=== PATIENT | female | born 1995 | race Caucasian/White ===

== ENCOUNTER 2020-06-26 14:51 | Emergency (ER) | payer MEDICAID, SELFPAY ==
[2020-06-26 14:59] VITALS: BP 110/86; PULSE 93; RESP 20; TEMP 36.4; O2SAT 97
--- NOTE | 2020-06-26 15:06 | W.ED.GENAD ---
Discharge Plan Disposition Patient Disposition: HOME Condition: Stable Discharge Details Clinical Impression: Depression, Deliberate self-cutting Primary Care Provider: Mirna Adair ED Provider: Lovely Little Home Meds and New Rx's Prescriptions: Continued fluticasone propion-salmeterol 250-50 mcg/dose blister with device 2 inh INHALATION BID RF: 0 albuterol sulfate 90 mcg/actuation HFA aerosol inhaler 2 puff INHALATION PRN PRNRF: 0 Discharge Instructions Instructions: Depression (ED) Additional Instructions: Follow-up with your scheduled appointment with your therapist Sugey tomorrow. Call [facility] twice daily to check in as part of your therapy. You can also call them anytime with questions or concerns. Follow-up with your scheduled appointment with [facility] next week to discuss possibly starting medication management for your depression. Return immediately to the emergency department if you develop any worsening or new concerning symptoms. Discharge Data Discharge Date/Time-TO BE ENTERED AT DEPARTURE: 06/26/20 17:03 Discharge Physician: Lovely Little Medical Decision Making 1515 -- 24-year-old female with a history of anxiety and depression presents for symptoms of depression and self-harm with cutting over the past week. Has had suicidal thoughts at times but not currently and does not have a plan. No HI. Vitals within normal limits. She appears nontoxic. She has superficial lacerations to her right volar forearm and right lateral thigh. As she appears nontoxic with clear and concise speech, do not see an indication for lab work at this time. A urine test was obtained and negative. We will have behavioral health evaluate at bedside and suspect that patient will need resources for outpatient follow-up. 1700 -- Pt discussed with Nesha from [facility] who evaluated patient through zoom at bedside. Patient is not currently suicidal at this time and agrees that patient is appropriate for discharge to home. Patient was advised that she can follow-up with [facility] by phone twice daily to check-in and at any time in between that if needed. She has an appointment with her therapist Sugey tomorrow in the office. There is also plan for patient to follow-up with a nurse practitioner at [facility] next week to discuss possible medication management of her depression. We will hold on any treatment with antidepressants from the ED due to patient's various side effect profile and that she does not appear to be in acute need. Advised to follow up with the primary care doctor for re-evaluation. Usual and customary return precautions given prior to discharge. HPI General Mode of arrival: ambulatory. Date/Time Provider Initiated Documentation: 06/26/20 14:53. Limitations to Documentation: no limitations. Information obtained by: patient. HPI Narrative: Patient is a 24-year-old female with a history of anxiety and depression who presents here for deliberate self cutting and feelings of depression for the past few months, worse over the past week. Patient states that she moved here from [facility] 2 months ago to attend [employer]. She states that in the past year she has been on Lexapro and Zoloft with side effects of nightmares and with Effexor for bilateral eye swelling, so she states she stopped all of them. She states she has seen a therapist Sugey in [place] for her depression recently. She states she also discussed with [facility] but they hesitated to put her on antidepressants due to her side effects. She states she cut her right thigh and her right forearm in the past week and her roommate became nervous and called the local police. Patient drove herself to the ER. Patient states she has had thoughts at times of cutting her wrists more deeply to hurt herself but has not thought specifically of suicide and has not thought of cutting her wrist to kill herself. She denies any previous history of suicide attempts. She states she first started cutting herself in the spring 2019. She denies homicidal ideation, drug use, hallucinations. She states she has been drinking 1 drink of alcohol daily for the past week due to her feelings of depression but no more than that. Related Data Home Medications Medication Instructions Recorded Confirmed albuterol sulfate 2 puff INHALATION PRN PRN 06/26/20 06/26/20 fluticasone propion-salmeterol 2 inh INHALATION BID 06/26/20 06/26/20 Allergies Allergy/AdvReac Type Severity Reaction Status Date / Time venlafaxine [From Effexor] Allergy Swelling/Ed Unverified 06/26/20 15:40 maurilio General Stated Complaint: PsychEval SHLIOH: 2 Review of Systems All systems reviewed & are unremarkable except as noted in HPI and below Constitutional Constitutional: Reports as per HPI, Denies chills and Denies fever(s) Eyes Eyes: Denies blurry vision ENT Ears, Nose, Mouth, and Throat: Denies dizziness, Denies sore throat and Denies throat swelling Cardiovascular Cardiovascular: Denies chest pain and Denies dyspnea Respiratory Respiratory: Denies cough and Denies dyspnea Gastrointestinal Gastrointestinal: Denies abdominal pain, Denies diarrhea and Denies vomiting Genitourinary Genitourinary: Denies hematuria and Denies dysuria Musculoskeletal Musculoskeletal: Denies back pain and Denies numbness Integumentary/Breasts Skin/Breast: Denies lesions and Denies rash Neurologic Neurologic: Denies dizziness, Denies localized weakness and Denies numbness Psychiatric Psychiatric: Reports depression Allergic/Immunologic Allergic/Immunologic: Denies throat swelling PFSH Medical History (Updated 06/26/20 @ 16:51 by Lovely Little DO) Anxiety Depression Surgical History (Updated 06/26/20 @ 16:47 by Lovely Little DO) No significant past surgical history Social History Smoking/Tobacco Use Status: Never Alcohol Intake: current Alcohol Intake frequency: a few times a month Drug use: Never Substance use type: does not use Exam Const General: cooperative, healthy appearing and no acute distress HENMT Head: normal to inspection Face and sinus: normal facial exam Eyes General: appearance normal, both eyes and all related structures Pupils: PERRL EOM: EOM intact bilaterally Neck Neck: normal visual inspection and No submandibular swelling Lymphatic: no lymphadenopathy noted Chest Chest: normal inspection of the chest and no tenderness Resp Effort & Inspection: normal respiratory effort and able to speak in complete sentences Auscultation: clear to auscultation bilaterally Cardio Rate: regular rate Rhythm: regular rhythm GI Inspection: normal to inspection Palpation: soft, not firm, not rigid and nontender Auscultation: normal bowel sounds Back/Spine/Pelvis Thoracic/Lumbar Spine: thoracic and lumbar spine normal to inspection Pelvis: no pain with anterior-posterior compression Skin General skin exam: no rashes or lesions noted Neuro General: patient alert, patient awake and patient oriented x3 Cognition: normal cognition Speech: speech normal Motor: muscle tone normal throughout Sensory Exam: no sensory deficits noted Extrem General: full ROM, capillary refill normal, no calf tenderness bilaterally and no edema Elbow/forearm/wrist images: 1. Separate multiple linear superficial lacerations with overlying developing crusts w/o erythema, edema, bleeding, induration, or ecchymoses. Upper/lower leg/hip images: 1. Multiple separate linear superficial lacerations noted on R lateral aspect of proximal thigh with overlying crusts w/o evidence of edema, erythema, ecchymoses, drainage, bleeding, induration or fluctuance. Psych Appearance: grossly normal Mental Status: mental status grossly normal Speech and Movement: speech and movement normal Affect: normal affect Thought Content: suicidality Course Vital Signs Vital signs: Vital Signs Temperature 97.5 F L 06/26/20 14:59 Pulse 93 H 06/26/20 14:59 Respiratory Rate 20 06/26/20 14:59 Blood Pressure 110/86 06/26/20 14:59 Pulse Oximetry 97 06/26/20 14:59 Temperature 97.5 F L 06/26/20 14:59 Temperature Source Skin 06/26/20 14:59 Pulse 93 H 06/26/20 14:59 Respiratory Rate 20 06/26/20 14:59 Blood Pressure 110/86 06/26/20 14:59 Blood Pressure Position Sitting 06/26/20 14:59 Pulse Oximetry 97 06/26/20 14:59 Oxygen Delivery Method Room Air 06/26/20 14:59 Oxygen Flow Rate 0 06/26/20 14:59 Pain Level 2 06/26/20 14:59
--- NOTE | 2020-06-26 16:50 | PDOC.MHCN ---
Date of service: 06/26/20 Time of Service: 16:50 Mental Health Crisis Note Presenting Issue How did you arrive at the ED and why did you come: Shirley came to the ER today on her own after cutting arms superficially. Precipitating Factors Shirley denied SI and HI. There are no signs of delusions. Disposition BEHAVIOR: Shirley is cooperative and engaged in assessment. Thoughts appear clear and she seems to be struggling with school and friends as she has used friends as a form or counselors and they have informed her of their boundaries. EYE CONTACT: Eye contact is good. MOOD: Mood is reported to be anxious AFFECT: Affect appears anxious. APPETITE: Shirley reported having a poor appetite. SLEEP(trouble falling/staying asleep: Shirley reported poor sleep. She is unable to go to sleep. Plan Shirley has a counseling appointment tomorrow. She has a first time PCP appointment next Thursday. She reported that she found the check in calls last week with [facility] to be helpful and so would like to have this again. I have put it on her to call [facility] twice a day and if needed more. Signature Clinician's Name/Title: Nesha Mcclain MS, [facility] Emergency Services Clinician
--- NOTE | 2020-06-26 16:53 | CMSP_ITS ---
- If Service Date Differs Date of service: 06/26/20 Time of Service: 16:53 Care Management Safety Plan Chief Complaint: Shirley is a 24 year old female who presents in the emergency department for depression, anxiety, and self-harming behaviors. She is denying current suicidal ideation, intent or plan. Shirley reports she moved to [place] from [place], [place], a couple of months ago. She is a [employer] student and is struggling with school. CM will respond to ED to assess patient after patient has been medically cleared and assessed by screener. If screener deems patient meets criteria for psychiatric stabilization CM will facilitate interdepartmental huddle with [facility] screener for safety planning considerations and meet with patient to review [facility] policy and safety plan, establish individual wishes for treatment and maintain patient rights. In the interim; please note safety plan below to guide patient care while awaiting further assessment in the ED. SAFETY PLAN: 1. Will remain on suicide precautions and in paper clothes. 2. Will remain in room under direct supervision of one-on-one staff at all times provided by [employer] marketing support specialist. 3. May have paper cups, plates, finger foods as well as a cardboard spoon with which to eat meals. 4. Follow [facility] Management of the Admitted Behavioral Health Patient policy. 5. Comfort bath system only. 6. No personal belongings 7. Visitors: No visitors at this time. 8. Activities: Soft tip markers, paper, television if available, and other activities at nursing discretion. 8. No telephone privileges at this time. 9. Due to VOLUNTARY status, if patient wishes to leave [facility], the [facility] pit worker power shovel must be contacted to evaluate patient prior to patient exiting the building. If deemed appropriate for inpatient psychiatric care, safety plan will be established with patient, and care team, to adhere to patient goals, identify restrictions based on behavioral status, address nutrition, and determine allowed personal belongings, tools for hygiene and personal care. As well plan will determine level of activity including ambulation, level of supervision, visitors, and determine privileges based on level of acuity, behaviors and level of engagement by patient. DISPOSITION: Shirley is evaluated by Nesha [facility] crisis screener. Shirley is able to enter into a safety plan, so she is returning home. She will follow up with her therapist tomorrow and knows how to contact [facility] emergency services. She also has a first time PCP appointment next week.
== END 2020-06-26 17:03 | disposition home or self-care (01) ==
PROVIDERS: Emergency Provider Physician Assistant; PCP Nurse Practitioner Family
DX: F41.8 Other specified anxiety disorders (principal); S51.811A Laceration without foreign body of right forearm, initial encounter; S71.111A Laceration without foreign body, right thigh, initial encounter; X78.9XXA Intentional self-harm by unspecified sharp object, initial encounter
CPT/HCPCS: 81025; 99283

== ENCOUNTER 2020-07-19 10:23 | Outpatient (REF) | payer MEDICAID, SELFPAY ==
[2020-07-19 21:31] LABS: Iron 97 ug/dL (50-170); Total Iron Binding Capacity 388 ug/dL (250-450); Transferrin Sat 25 % (15-50)
[2020-07-19 21:35] LABS: TSH (W/Ref FT4) 1.67 uIU/mL (0.36-3.74)
[2020-07-19 21:51] LABS: Vitamin D 25 Total 54.2 ng/ml (30-100)
[2020-07-21 13:47] LABS: Syphilis Total Ab w/Reflex Nonreactive (Nonreactive)
[2020-07-21 23:14] LABS: Chlamydia amplified RNA Negative (Negative); N gonorrhoeae amplified RNA Negative (Negative); Source URINE
[2020-07-23 16:51] LABS: HIV-1/2 Ag & Ab Screen Negative (Negative)
== END 2020-07-19 10:43 ==
LOC: NCHCN 10:23
PROVIDERS: PCP Nurse Practitioner Family; Visit Provider Nurse Practitioner Family
DX: F41.8 Other specified anxiety disorders (principal)
CPT/HCPCS: 82306; 87389; 87491; 87591; 83540; 83550; 84443; 86780

== ENCOUNTER 2020-08-20 19:32 | Outpatient (REF) | payer MEDICAID, SELFPAY ==
[2020-08-23 21:26] LABS: COVID-19 RT-PCR Result NEGATIVE (Negative)
== END 2020-08-20 19:52 ==
LOC: NCHCN 19:32
PROVIDERS: PCP Nurse Practitioner Family; Visit Provider Nurse Practitioner Family
DX: Z20.828 Contact with and (suspected) exposure to other viral communicable diseases (principal)
CPT/HCPCS: U0003

== ENCOUNTER 2020-08-29 15:57 | Outpatient (REF) | payer MEDICAID, SELFPAY ==
[2020-08-31 23:07] LABS: COVID-19 RT-PCR UVMMC Result Negative (Negative)
== END 2020-08-29 16:17 ==
LOC: NCHCN 15:57
PROVIDERS: PCP Nurse Practitioner Family; Visit Provider Nurse Practitioner Family
DX: Z20.828 Contact with and (suspected) exposure to other viral communicable diseases (principal)
CPT/HCPCS: U0003

== ENCOUNTER 2020-10-18 15:09 | Outpatient (REF) | payer MEDICAID, SELFPAY ==
[2020-10-22 11:51] LABS: Hepatitis C Ab w Rflx HCV PCR Negative (Negative); Syphilis Serology (RPR) Negative (Negative)
[2020-10-22 12:06] LABS: HIV-1/2 Ag & Ab Screen Negative (Negative)
[2020-10-23 07:43] LABS: Chlamydia Result Negative (Negative); GC Result Negative (Negative)
== END 2020-10-18 15:10 | disposition home or self-care (01) ==
LOC: NCHCN 15:09
PROVIDERS: PCP Nurse Practitioner Family; Visit Provider Nurse Practitioner Family
DX: Z11.3 Encounter for screening for infections with a predominantly sexual mode of transmission (principal)
CPT/HCPCS: 86803; 87389; 87491; 87591; 86592